=== PATIENT | male | born 1950 | race Caucasian/White ===

== ENCOUNTER 2017-03-12 00:32 | Emergency (ER) | payer MEDICARE, BC ==
[~2017-03-12 00:32] MED LIST: ALLOPURINOL1 POW PO; ARMOUR THYROID30 MG PO; BENADRYL PO; CEPHALEXIN500 M1 PO; CETIRIZINE HCL10 MG PO; ELIQUIS5 MG PO; HYDROCHLOROTHIA25 MG PO; LORAZEPAM0.5 MG PO; LOSARTAN POTASS50 MG PO; METOPROLOL SUCC25 MG PO; MULTAQ400 M1 PO; NORVASC 5MG5 MG/TAB PO; PREDNISONE20 M1 PO; PRILOSEC 20MG20 MG PO; SYNTHROID0.1 MG PO; XANAX0.5 MG PO
[2017-03-12 01:10] VITALS: BP 142/91
== END 2017-03-12 01:10 | disposition home or self-care (01) ==
LOC: ED 00:32
DX: R00.2 Palpitations (principal); I48.91 Unspecified atrial fibrillation; I10 Essential (primary) hypertension; C80.1 Malignant (primary) neoplasm, unspecified; C79.89 Secondary malignant neoplasm of other specified sites; F41.9 Anxiety disorder, unspecified

== ENCOUNTER 2017-09-04 08:57 | Emergency (ER) | payer MEDICARE, BC ==
[~2017-09-04] VITALS: Ht 182.9 cm; Wt 81.8 kg
[2017-09-04] MEDS ORDERED: ALPRAZOLAM0.25 MG PO (09:05)
[2017-09-04] MEDS ORDERED: VALACYCLOVIR1 GM PO (09:33)
[2017-09-04] MEDS ORDERED: PREDNISONE20 M1 PO ×2 (09:33→09:34)
[2017-09-04 09:57] VITALS: BP 108/73
== END 2017-09-04 09:57 | disposition home or self-care (01) ==
LOC: ED 08:57
DX: L30.9 Dermatitis, unspecified (principal); E03.9 Hypothyroidism, unspecified

== ENCOUNTER 2022-04-28 13:03 | Emergency (ER) | payer MEDICARE, BC ==
[~2022-04-28 13:03] MED LIST changes: +ALPRAZOLAM0.25 MG PO; +VALACYCLOVIR1 GM PO
[2022-04-28] MEDS ORDERED: LOPRESSOR 225 MG/TAB PO (13:24)
[2022-04-28] MEDS ORDERED: KLONOPIN 1MG1 MG PO (13:24)
[2022-04-28] MEDS ORDERED: LEVOTHYROXINE125 MCG PO (13:24)
[2022-04-28] MEDS ORDERED: XARELTO20 MG PO (13:25)
[2022-04-28] MEDS ORDERED: PANTOPRAZOLE SO40 MG PO (13:25)
[2022-04-28 13:53] LABS: BASO # 0.03 K/mm3 (0.02-0.10); EOS # 0.06 K/mm3 (0.04-0.40); EOS % 1.2 % (0.0-4.0); HEMATOCRIT 46.3 % (42.0-52.0); HEMOGLOBIN 15.6 g/dL (13.5-18.0); LYMPH# 0.92 K/mm3 (1.50-4.00); MEAN CELL VOLUME 89 fl (78-100); MEAN CORPUSCULAR HEMOGLOBIN 30 pg (27-31); MEAN CORPUSCULAR HGB CONC 34 g/dL (33-37); MEAN PLATELET VOLUME 10.2 fl (7.4-10.4); MONO # 0.58 K/mm3 (0.20-0.80); NEU # 3.25 K/mm3 (1.40-6.50); PLATELET COUNT 162 K/mm3 (130-400); RED CELL DISTRIBUTION WIDTH 13.3 % (11.5-14.5); WHITE BLOOD COUNT 4.8 K/mm3 (4.8-10.8)
[2022-04-28 13:57] LABS: ALBUMIN 3.8 g/dL (3.4-4.8)
[2022-04-28 13:58] LABS: SODIUM 141 mmol/L (136-145)
[2022-04-28 13:59] LABS: CALCIUM 9.1 mg/dL (8.3-10.5)
[2022-04-28 14:00] LABS: GLUCOSE 92 mg/dL (75-110); TOTAL PROTEIN 6.8 g/dL (6.2-8.1)
[2022-04-28 14:01] LABS: CARBON DIOXIDE 20 mmol/L (23-31)
[2022-04-28 14:02] LABS: TOTAL BILIRUBIN 0.7 mg/dL (0.2-1.2)
[2022-04-28 14:05] LABS: AST-SGOT 12 U/L (5-34)
[2022-04-28 14:06] LABS: ALT/SGPT 15 U/L (0-55)
[2022-04-28 14:14] LABS: URINE APPEARANCE CLEAR; URINE BILIRUBIN NEGATIVE (NEGATIVE); URINE BLOOD NEGATIVE (NEGATIVE); URINE COLOR YELLOW; URINE GLUCOSE NEGATIVE (NEGATIVE); URINE KETONE NEGATIVE (NEGATIVE); URINE LEUKOCYTE ESTERASE NEGATIVE (NEGATIVE); URINE NITRATE NEGATIVE (NEGATIVE); URINE PROTEIN(semi-quant) NEGATIVE (NEGATIVE); URINE UROBILINOGEN NORMAL (NORMAL)
[2022-04-28 15:30] VITALS: BP 140/87
[2022-04-28 15:34] LABS: TROPONIN-I < 0.030 ng/mL (<0.030)
== END 2022-04-28 15:30 | disposition home or self-care (01) ==
LOC: ED 13:03
PROVIDERS: Physician Assistant
DX: R00.2 Palpitations (principal); Z79.01 Long term (current) use of anticoagulants; Z28.310 Unvaccinated for COVID-19; Z86.79 Personal history of other diseases of the circulatory system

== ENCOUNTER 2024-04-12 17:05 | Emergency (ER) | payer MEDICARE, BC ==
[~2024-04-12 17:05] MED LIST changes: +CYCLOBENZAPRINE10 M1 PO; +FLOMAX0.4 MG PO; +KETOROLAC10 MG PO; +KLONOPIN 1MG1 MG PO; +LEVOTHYROXINE125 MCG PO; +LOPRESSOR 225 MG/TAB PO; +PANTOPRAZOLE SO40 MG PO; +XARELTO20 MG PO
[2024-05-18 07:42] LABS: ALBUMIN 3.9 g/dL (3.4-4.8); ALT/SGPT 14 U/L (0-55); AST-SGOT 18 U/L (5-34); CALCIUM 9.2 mg/dL (8.3-10.5); GLUCOSE 126 mg/dL (75-110); SODIUM 142 mmol/L (136-145); TOTAL BILIRUBIN 0.4 mg/dL (0.2-1.2); TOTAL PROTEIN 6.8 g/dL (6.2-8.1)
[2024-05-18 07:46] LABS: CARBON DIOXIDE 17 mmol/L (23-31); TROPONIN-I < 0.030 ng/mL (0.00-0.033)
[2024-05-18 07:48] LABS: BASO # 0.02 K/mm3 (0.02-0.10); EOS # 0.17 K/mm3 (0.04-0.40); EOS % 2.8 % (0.0-4.0); HEMOGLOBIN 12.6 g/dL (13.5-18.0); LYMPH# 1.19 K/mm3 (1.50-4.00); MEAN CELL VOLUME 88 fl (78-100); MEAN CORPUSCULAR HEMOGLOBIN 30 pg (27-31); MEAN CORPUSCULAR HGB CONC 34 g/dL (33-37); MEAN PLATELET VOLUME 10.3 fl (7.4-10.4); MONO # 0.52 K/mm3 (0.20-0.80); NEU # 4.15 K/mm3 (1.40-6.50); PLATELET COUNT 190 K/mm3 (130-400); RED BLOOD COUNT 4.23 M/mm3 (4.20-5.60); RED CELL DISTRIBUTION WIDTH 13.6 % (11.5-14.5); WHITE BLOOD COUNT 6.1 K/mm3 (4.8-10.8)
== END 2024-04-12 19:26 | disposition home or self-care (01) ==
LOC: ED 17:05
PROVIDERS: Family Medicine
DX: I48.91 Unspecified atrial fibrillation (principal)

== ENCOUNTER 2024-11-22 15:04 | Emergency (ER) | payer MEDICARE, BC ==
[2024-11-22] MEDS ORDERED: AMLODIPINE BESYL5 MG PO (15:24)
[2024-11-22 16:01] VITALS: BP 140/86
== END 2024-11-22 16:04 | disposition home or self-care (01) ==
LOC: ED 15:04
DX: I48.91 Unspecified atrial fibrillation (principal); Z85.46 Personal history of malignant neoplasm of prostate

== ENCOUNTER → 2025-01-15 | Outpatient (CLI) | payer MEDICARE, BC ==
[~2025-01-15] MED LIST changes: +AMLODIPINE BESYL5 MG PO
== END ==
LOC: RAD 15:55
DX: M81.0 Age-related osteoporosis without current pathological fracture (principal)